=== PATIENT | female | born 2000 | race Caucasian/White ===

== ENCOUNTER 2018-08-16 15:40 | Emergency (ER) | payer OTHER ==
[~2018-08-16] VITALS: Ht 167.6 cm; Wt 87.1 kg
[2018-08-16 15:48] VITALS: BP 116/71
[2018-08-16] MEDS ORDERED: NACL 0.9% 1,000 ML IV ONE (15:55)
[2018-08-16] MEDS ORDERED: KETOROLAC 30 MG/ML VIAL IVP SCH (15:55)
--- NOTE | 2018-08-16 16:00 | NUR ---
C/O N/V YESTERDAY; HACKING COUGH, CHILLS, NASAL CONGESTION, FATIGUE ANTERIOR CHEST WALL PAIN WITH COUGH----LOSS OF VOICE. HX--ASTHMA. PATIENT STATES PAIN OF 6/10 AT THIS TIME; VSS; PATIENT POSITIONED FOR COMFORT; HOB ELEVATED; BEDRAILS UP X2; BED DOWN. ER MD MADE AWARE OF PT STATUS.
[2018-08-16] MEDS ORDERED: ALBUTEROL 0.083% 2.5 MG/3 ML NEBU INH ONE (16:10)
[2018-08-16] MEDS ORDERED: predniSONE 20 MG TAB PO ONE (16:10)
[2018-08-16] MEDS ORDERED: ALBUTEROL SULFATE/IPRATROPIU 3 ML SOL IH ONE (16:10)
--- NOTE | 2018-08-16 16:24 | NUR ---
RT AT BEDSIDE FOR BREATHING TREATMENT.
--- NOTE | 2018-08-16 16:56 | NUR ---
Patient being evaluated by DR ESQUIVEL at bedside.
[2018-08-16 17:07] VITALS: BP 103/70
--- NOTE | 2018-08-16 17:07 | NUR ---
Patient discharged with v/s stable. Written and verbal after care instructions given and explained. Patient alert, oriented and verbalized understanding of instructions. Ambulatory with steady gait. All questions addressed prior to discharge. ID band removed. Patient advised to follow up with PMD. Rx of MOTRIN, PREDNISONE & ALBUTEROL given. Patient educated on indication of medication including possible reaction and side effects. Opportunity to ask questions provided and answered.
== END 2018-08-16 17:07 | disposition home or self-care (01) ==
LOC: MED 15:40
DX: J45.901 Unspecified asthma with (acute) exacerbation (principal); J11.1 Influenza due to unidentified influenza virus with other respiratory manifestations; Z90.49 Acquired absence of other specified parts of digestive tract
CPT/HCPCS: 81002; 81025; 94640; 96374; 99283; J1885; J7030; J7512; J7613; J7620